=== PATIENT | male | born 1965 | race African-American/Black ===

== ENCOUNTER 2024-05-24 08:35 | Outpatient (REF) | payer MEDICAID, SELFPAY ==
--- NOTE | ~2024-05-24 | XR_ITS ---
EXAMINATION: XR WRIST, LEFT CLINICAL INFORMATION: M25.532 - Pain in left wrist COMPARISON: None available. TECHNIQUE: PA, lateral, and oblique views of the left wrist. FINDINGS: No fracture, dislocation, or suspicious bone lesion. Normal bone mineralization. Carpal bones are intact and normally aligned. Minimal dorsal lunate tilt. Minimal degenerative arthritis at the first CMC joint. Mild blunting of the ulnar styloid, chronic. Normal DRUJ. Normal radiocarpal joint. Soft tissues appear normal. XR/XR wrist LT w scaphoid IMPRESSION: 1. No acute findings left wrist. 2. Mild chronic changes. Electronically signed by: Darin Figueroa MD 05/25/2024 12:01 PM JOSIANE
--- OUTSIDE RECORDS SUMMARY | 2024-05-24 08:59 | XMS_ITS ---
Author Organization [facility] Address [address], [place] [id number] Care Team Providers Care Utility Supervisor [employer] Name Role Phone Minesh Hernandez Primary Care Provider [phone] Results Component Value Reference Range Notes Blood Sugar/finger stick Reviewed date:05/14/2024 12:00:50 PM Interpretation:Normal 128 Performing Lab: Notes/Report: Normal 128 HEMOGLOBIN A1C Reviewed date:05/17/2024 10:33:11 AM Interpretation:6.0 Performing Lab: Notes/Report: Hemoglobin A1C 6.0 <6.5 % Mean Bld Glu Estim. 126 REASON FOR VISIT Office: 6 week f/u, HUDDLE: Flu vax; COVID vax; Shingrix; SDOH; PHQ-9; lab orders; eye care, VISIT:foot exam; DM; knee; weight, Symptom screening by [facility] staff pre entrance to clinic Medications Medication SIG (Take, Route, Frequency, Duration) Notes Start Date End Date Status Trulicity Pen 0.75 mg/0.5 mL as directed subcutaneously once a week for 28 days 03/05/2024 Active naproxen 500 mg 1 tab(s) orally 2 ti mes a day for 21 days Active hydrochlorothiazide-lis inopril 12.5 mg-20 mg 2 tabs orally once a day for 90 days Active MetFORMIN (Eqv-Glucophage XR) 500 mg 2 tab(s) orally with breakfast once a day for 90 days Not-Taking senna 8.6 mg 1 tab(s) orally once a day (at bedtime) for 30 days 05/14/2024 Active phentermine 15 mg 1 cap(s) orally once a day (in the morning) for 30 days PA to be submitted MMonday 08/11/2023 Not-Taking ciclopirox topical 8% 1 joie applied topi lakeisha once a day for 90 days 10/31/2023 Active Lipitor 80 mg 1 tab(s) orally once a day (at bedtime) for 90 days Active Social History Tobacco Use: Social History Observation Description Date Details (start date - stop date) Never Smoker NA - NA Sex Assigned At : Social History Observation Description Sex Assigned At Male Tobacco Use Assessment MU Question Answer Notes What is your current smoking status? nonsmoker Problems Problem Type SNOMED Code ICD Code Onset Dates Problem Status W/U Status Risk Notes Problem Body mass index 30.00 to 34.99 ([id number] ) Body mass index (BMI) 33.0-33.9, adult (Z68.33) Active confirmed Problem Slow transit constipation (90412567) Slow transit constipation (K59.01) Active confirmed Vital Signs Temperature 97.8 degrees Fahrenheit 05/14/19 25 Height 70 in 05/14/2024 Weight 236.0 lbs 05/14/2024 BMI 33.86 kg/m2 05/14/2024 Oximetry 98 05/14/2024 Blood pressure systolic 123 05/14/19 25 Blood pressure diastolic 78 025 Encounters Encounter Location Date Provider Diagnosis [address] [id number] 05/14/2024 Minesh David Type 2 diabetes mellitus without complications E11.9 ; Other obesity due to excess calories E66.09 ; Encounter for screening for COVID-19 Z11.52 ; Essential (primary) hypertension I10 ; Adjustment disorder with depressed mood F43.21 ; Sheltered homelessness Z59.01 ; Osteoarthritis of knee, unspecified M17.9 ; Body mass index (BMI) 33.0-33.9, adult Z68.33 and Slow transit constipation K59.01 Assessments Encounter Date Diagnosis (ICD Code) Assessment Notes Treat ment Notes Treatment Clinical Notes 05/14/2024 Type 2 diabetes mellitus without complications (ICD-10 - E11.9) Contrl historically good. A1c today 05/14/2024 Other obesity due to excess calories (ICD-10 - E66.09) We loked at his weight loss. he feels he is srill losing readily at home and we decided to leave [facility] for Dm and weight as is and folow. uf he stalls we can increas strenthth. geting best diet is tough for him in his living circumstance. Discussed fresh food 05/14/2024 Encounter for screening for COVID-19 (ICD-10 - Z11.52) Covid screening is negative. Discussed in detail with patient how to practice social distancing by avoiding public spaces and crowds now, wearing a mask in public to keep nose and mouth covered, and washing hands frequently especially before eating and after using the bathroom. Return to clinic if you develop any symtpoms of concern to be rescreened or go to the emergency room if you are having concerning symptoms for COVID-19. 05/14/2024 Essential (primary) hypertension (ICD-10 - I10) BP good-no changes 05/14/2024 Adjustment disorder with depressed mood (ICD-10 - F43.21) Mood improved-no change oin support rx 05/14/2024 Sheltered homelessness (ICD-10 - Z59.01) Still woith family and Ok with things 05/14/2024 Osteoarthritis of knee, unspecified (ICD-10 - M17.9) Much improved. Keep walking 05/14/2024 Body mass index (BMI ) 33.0-33.9, adult (ICD-10 - Z68.33) 05/14/2024 Slow transit constipation (ICD-10 - K59.01) He feels need for mopre of stiumulant than a softener. Rx senna and will call and we can add PEG if no good repsons.e OI told him clean out (he is asking for one timer) is not a good solution as he is not obstipateted 05/14/2024 Other I dimitrios try to gt e [facility] records re accidne tbut he is satisfied wih progress and has f/u hortly Plan Of Treatment Medication Medication Name Sig Start Date Stop Date Notes Trulicity Pen 0.75 mg/0.5 mL as directed subcutaneously once a week for 28 days 03/05/2024 senna 8.6 mg 1 tab(s) orally once a day (at bedtime) for 30 days 05/14/2024 Treatment Notes Assessment Notes Type 2 diabetes mellitus wit hout complications Contrl historically good. A1c today Other obesity due to excess calories We loked at his weight loss. he feels he is srill losing readily at home and we decided to leave [facility] for Dm and weight as is and folow. uf he stalls we can increas strenthth. geting best diet is tough for him in his living circumstance. Discussed fresh food Encounter for screening for COVID-19 Cov id screening is negative. Discussed in detail with patient how to practice social distancing by avoiding public spaces and crowds now, wearing a mask in public to keep nose and mouth covered, and washing hands frequently especially before eating and after using the bathroom. Return to clinic if you develop any symtpoms of concern to be rescreened or go to the emergency room if you are having concerning symptoms for COVID-19. Essential (primary) hypertension BP good -no changes Adjustment disorder with depressed mood Mood improved-no change oin support rx Sheltered homelessness Still woith famil y and Ok with things Osteoarthritis of knee, unspecified Much improved. Keep walking Slow transit constipation He feels need for mopre of stiumulant than a softener. Rx senna and will call and we can add PEG if no good repsons.e OI told him clean out (he is asking for one timer) is not a good solution as he is not obstipateted Other I dimitrios try to gte Win g records re accidne tbut he is satisfied wih progress and has f/u hortly Next Appt Details Follow Up: 3 Months, Reason: AB: weight Provider Name:Minesh Hernandez, 08/06/2024 09:00:00 AM, [address] [place] [address], [phone], Provider Name:Sakina noel, 08/10/2024 09:00:00 AM, [address] [place] [address], [phone], Progress Notes * Jason SAMANIEGO LDOB:[birth year] (58 yo M)Acc No.[id number]:05/14/2024 Progress Notes Patient:?Jason SAMANIEGO Provider:?Minesh Hernandez MD :1965???Age:58 Y???Sex:Male Baldo e:05/14/2024 Address:[address] [place] [address] [phone] Subjective: * Chief Complaints: * ???1. Office: 6 week f/u. 2. HUDDLE: Flu vax; COVID vax; Shingrix; SDOH; PHQ-9; lab orders; eye care. 3. VISIT: foot exam; DM; knee; weight. 4. Symptom screening by [facility] staff pre entrance to clinic. * HPI: ???General:? Symptom Screen: - Fever in the last 1 week? Patient denies - New or worsening cough in the last 1 week? Patient denies. - Contact will known COVID exposure in last 5 days? Patient denies -new rash within last 3 weeks? Patient denies - Have you received the COVID-19 vaccine? - Have you received COVID-19 booster? - Have you been tested positive for COVID -19 in the last 7 days? If so where and why? RN/MA: No concerns at [facility]. AB: HUDDLE: Flu vax; COVID vax; Shingrix; SDOH; PHQ-9; lab orders; eye care, ?VISIT: foot exam; DM; knee; weight HIS AGENDA: WEIGHT: Has dropped 10 pounds on trity - takes on .? Some constipation and wants laxative.? had tried teas. Now mag citarte. Constipation: see niko. He cannot tell me marc intevals but he has to sgtrain. Finber intake fair at best. Wants a real clean out ? Not passing blood No POC's at home.? No lows. no high sx. Urinatioin is good ? eye care recently-eye and lasik.Think sir was OK Also fell 03/15 on the ice-hurt left hand - seen at [place] and finally getting better but to [facility] ortho in 10 days. HE continues left wrii splint Knee - doing quite well Going on vacation to [place] [facility] for June. ???Depression Screening:?PHQ-9?Little interest or pleasure in doing things?Not at all ?Feeling down, depressed, or hopeless?Not at all ?Trouble falling or staying asleep, or sleeping too much?Not at all ?Feeling tired or having little energy?Not at all ?Poor appetite or overeating?Not at all ?Feeling bad about yourself-or that you are a failure or have let yourself or your family down?Not at all ?Trouble concentrating on things, such as reading the newspaper or watching television?Not at all ?Moving or speaking so slowly that other people could have noticed. Or the opposite being so fidgety or restless that you have been moving around a lot more than usual?Not at all ?Thoughts that you would be better off , or of hurting yourself in some way?Not at all ?Total Score?0 * ROS:?No acute C/P no acute SOB, No problem with urine, No heartburn or abdominal pain. Endorses being able to climb one fight of stairs without stopping due to SOB, Mood: stable, appetite: good, sleeping well. Denies new skin rashes. * Medical History:? * Social History:?Housing/living arrangements: 05/14/2024 Same02/2024: [address], no changes03/2023 no changes10/19 FO and at friend's houses. ???SDoH Screening?Entered Date?05/14/2024 ?How is this screening being conducted today??By phone ?What is your housing situation today??I do not have housing (staying with others, in a hotel, in a senior care, living outside on the street, on a beach, in a car or in a park) ?Think about the place you live. Do you have problems with any of the following? (Check all that apply)?None of the above ?Within the past 12 months, you worried that your food would run out before you got money to buy more?Never true ?Within the past 12 months, the food you bought just didn't last and you didn't have enough money to get more?Never true ?In the past 12 months, has lack of transportation kept you from medical appointments, meetings, work or from getting things needed for daily living? (Check all that apply)?No ?In the past 12 months has the [employer], gas, oil, or water [employer] threatened to shut off services in your home??I am not sure ?Think about the place you live. Do you have access to internet/wi-fi when you need it??Yes ?Do you want help finding or keeping work or a job??I do not need or want help ???Tobacco Use Assessment MU?Annual Tobacco assessment completed?05/14/2024 Denies ?Tobacco assessment completed?05/14/2024 ?What is your current smoking status??nonsmoker ???Drug use?Date of history:?05/14/2024 Denies ???Opiate Use Hx?Ever taken opiates?No 05/14/2024 ?What did you use first??Opiates prescribed by a doctor ???Alcohol Use: never, 05/14/2024 Opgxcg07/2024: Denies03/2023 Denies04/22 denies. 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 ???Income: 04/22 no income. ???Legal issues/Incarcerations: 04/22 Denies. ???PCP/last visit: 04/22 [facility]. ???Transportation: 04/22 license borrows friend's car. ???Marital Status: Single, 04/22 Single. ???Next of Kin/Emerg. Contact & Community Supports: 04/22 Self. ???Childhood experience?In fostercare/DYS for a portion of childhood?No ?Victim of physical abuse?No ?Victim of sexual abuse?No ?Adults at home using drugs/drinking excessivly?No ?Witness to violence/DV in childhood?No ???Children: none, 04/22 2 sons. ???Islam: none, 04/22 Denies. ???TBI screening/Head injury Hx: Positive, 04/22 Denies. ???Social hx: 04/22 Born in [place] and raised in [place]. Lived with grandparents and then mom. 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 No.? * Medications:?Taking ciclopir ox topical 8% solution 1 joie applied topically once a day , Taking Lipitor 80 mg tablet 1 tab(s) orally once a day (at bedtime) , Taking Trulicity Pen 0.75 mg/0.5 mL solution as directed subcutaneously once a week , Taking naproxen 500 mg tablet 1 tab(s) orally 2 times a day , Taking hydrochlorothiazide-lisinopril 12.5 mg-20 mg tablet 2 tabs orally once a day , Not-Taking/PRN MetFORMIN (Eqv-Glucophage XR) 500 mg tablet, extended release 2 tab(s) orally with breakfast once a day , Not-Taking/PRN phentermine 15 mg capsule 1 cap(s) orally once a day (in the morning) PA to be submitted MMonday, Medication List reviewed and reconciled with the patient Objective: * Vitals:?BP Generic: 123/78, Ht: 70, Wt: 236.0, BMI:33.86, HR: 73, Oxygen sat %: 98, Temp: 97.8. * Physical Examination:?BP and weight noted IN NAd No JVD no thyromegaly chest clear ?no murmur nilat knee creiptius but normal ROM left wrist slint i place-not removed abd soift DM foor exam: Dp pulses 2+ and PT 1+ bilat MF 10/10 bilat nails dry but not deformed skin a bit dry no ulcerastions. Assessment: * Assessment: 1.?Other obesity due to exce ss calories - E66.09 (Primary)???2.?Type 2 diabetes mellitus without complications - E11.9???3.?Encounter for screening for COVID-19 - Z11.52???4.?Essential (primary) hypertension - I10???5. Adjustment disorder with depressed mood - F43.21???6.?Sheltered homelessness - Z59.01???7.?Osteoarthritis of knee, unspecified - M17.9???8.?Body mass index (BMI) 33.0-33.9, adult - Z68.33???9.?Slow transit constipation - K59.01??? Plan: * Treatment: 2.?Type 2 diabetes mellitus without complications? Start senna tablet, 8.6 mg, 1 tab(s), orally, once a day (at bedtime), 30 days, 30 each, Refills 1;?Refill Trulicity Pen solution, 0.75 mg/0.5 mL, as directed, subcutaneously, once a week, 28 days, 4, Refills 2.?LAB: HEMOGLOBIN A1C (Collection Date & Time - 05/14/2024 12:05 PM)?6.0 ? Value Reference Range ?Hemoglobin A1C 6.0 <6.5 - % * ?Mean Bld Glu Estim. 126 - m g/dL ?LAB: Blood Sugar/finger stick (Collection Date & Time - 05/14/2024)?Normal 128 Notes: Contrl historically good. A1c today??3.?Encounter for screening for COVID-19? Notes:Covid screening is negative. Discussed in detail with patient how to practice social distancing by avoiding public spaces and crowds now, wearing a mask in public to keep nose and mouth covered, and washing hands frequently especially before eating and after using the bathroom. Return to clinic if you develop any symtpoms of concern to be rescreened or go to the emergency room if you are having concerning symptoms for COVID-19.??4.?Essential (primary) hypertension? Notes: BP good-no changes??5.?Adjustment disorder with depressed mood? Notes: Mood improved-no change oin support rx??6.?Sheltered homelessness? Notes: Still woith family and Ok with things??7.?Osteoarthritis of knee, unspecified? Notes: Much improved. Keep walking??8.?Slow transit constipation? Notes: He feels need for mopre of stiumulant than a softener. Rx senna and will call and we can addPEG if no good repsons.e OI told him clean out (he is asking for one timer) is not a good solutionas he is not obstipateted??9.?Others? Notes: I dimitrios try to gte [facility] records re accidne tbut he is satisfied wih progress and has f/u hortly?? * Procedure Codes:?06472 BLOOD GLUCOSE/FINGER STICK * Follow Up:?3 Months (Reason: AB: weight) * Images: Billing Information: * Visit Code:? 44168 HPI: 1PF;1ROS;PE: 2-4BA/SYS;MDM:Low; Prescription/OTC;most infections or >50%/15min spent counseling. * Procedure Codes:? 29193 BLOOD GLUCOSE/FINGER STICK. Care Plan Details* * Sign off status: Completed true * Provider:?Minesh Hernandez MD Date:?2024 Generated for Nishant olivier/Aaliyah/eTransmitting on:?2024 08:59 AM EST History and Physical Notes * HPI (History of Present Illness) Category Sub-Category Detail Notes Depression Screening PHQ-9 Little inte rest or pleasure in doing things: Not at all Feeling down, depressed, or hopeless: No t at all Trouble falling or staying asleep, or sl eeping too much: Not at all Feeling tired or having little energy: N ot at all Poor appetite or overeating: Not at all Feeling bad about yourself-o r that you are a failure or have let yourself or your family down: Not at all Trouble concentrating on thi ngs, such as reading the newspaper or watching television: Not at all Moving or speaking so slowly that other people could have noticed. Or the opposite being so fidgety or restless that you have been moving around a lot more than usual: Not at all Thoughts that you would be b maxime off , or of hurting yourself in some way: Not at all Total Score: 0
--- OUTSIDE RECORDS SUMMARY | 2024-05-24 08:59 | XMS_ITS | Clinical Summary ---
Author Organization [address] [facility] Address [address] [place] [address] Phone Care Team Providers Care Spindle Setter Name Role Phone Unavailable Primary Care Provider Unavailabl e Encounters Date Type Department Care Team Description 05/14/2024 Lab Requisition [facility] - Main Lab [address] [place] [address] Mniesh Hernandez MD Type 2 diabetes mellitus without complications (CMS/HCC) from Last 3 Months Social History Tobacco Use Types Packs/Day Years Used Date Smoking Tobacco: Never Assessed Sex and Gender Information Value Date Recorded Sex Assigned at Not on file Legal Sex Male 7:34 PM EST Gender Identity Not on file Sexual Orientation Not on file Plan of Treatment Health Maintenance Due Date Last Done Comments Diabetes: Annual Foot Exam 1973 Diabetes: Annual Retina Eye Exam 1973 DTaP,Tdap,and Td Vaccines (1 - Tdap) 1982 Pneumococcal Vaccine: 50+ Ye ars (1 of 2 - PCV) 1982 Pneumococcal Vaccine: Pediat rics (0 to 5 Years) and At-Risk Patients (6 to 64 Years) (1 of 2 - PCV) 1982 Zoster Vaccines (1 of 2) 2013 COVID-19 Vaccine (2023-2 5 season) 2023 Influenza Vaccine (#1) 2023 Cholesterol Screening (Lipid Panel) 05/15/2024 Colorectal Cancer Screening: Colonoscopy 05/15/2024 Depression Screening 05/15/2024 Diabetes: Annual Urine Albumin-Creatinine Ratio (uACR) 05/15/2024 HIV Screening 05/15/2024 Hepatitis C Screening 05/15/2024 Social Influencers of Health Screening 05/15/2024 Diabetes: Blood Sugar Contro l Test (HGBA1C) 11/11/2024 05/14/2024 Diabetes: Annual GFR (Glomer ular Filtration Rate) 05/14/2025 05/14/2024 RSV Immunization Patients 60 + Years Old (1 - 1-dose 75+ series) 2038 HIB Vaccines Aged Out No longer eligi ble based on patient's age to complete this topic HPV Vaccines Aged Out No longer eligi ble based on patient's age to complete this topic Hepatitis A Vaccines Aged Out No long er eligible based on patient's age to complete this topic Hepatitis B Vaccines Aged Out No long er eligible based on patient's age to complete this topic IPV Vaccines Aged Out No longer eligi ble based on patient's age to complete this topic MMR Vaccines Aged Out No longer eligi ble based on patient's age to complete this topic Meningococcal ACWY Vaccine Aged Out N o longer eligible based on patient's age to complete this topic Meningococcal B Vacine Aged Out No lo nger eligible based on patient's age to complete this topic RSV Immunization Patients Un josé 20 months Aged Out No longer eligible b ased on patient's age to complete this topic Varicella Vaccines Aged Out No longer eligible based on patient's age to complete this topic Procedures Procedure Name Priority Date/Time Associated Diagnosis Comments HEMOGLOBIN A1C Routine 05/14/2024 12:05 PM EST Type 2 diabetes mellitus without complications (CMS/HCC) COMPREHENSIVE METABOLIC PANEL Routine 05/14/2024 12:05 PM EST Type 2 diabetes mellitus without complications (CMS/HCC) from Last 3 Months Results * Hemoglobin A1c (05/14/2024 12:05 PM EST) Hemoglobin A1C 6.0 <6.5 % LAB CHEMISTRY METHOD 05/14/2024 8:44 PM EST [facility] Mean Bld Glu Estim. 126 mg/dL LAB CHEMISTRY METHOD 05/14/2024 8:44 PM EST [facility] Blood Venous blood specimen / Unknown 05/14/2024 12:05 PM EST 05/14/2024 4:28 PM EST us Minesh Hernandez MD LAB BLOOD ORDERABLES Final Re sult [facility] [address] [place] [address], * (ABNORMAL) Comprehensive metabolic panel (05/14/2024 12:05 PM EST) Sodium 140 133 - 145 mmol/L LAB CHEMISTRY METHOD 05/14/2024 5:08 PM [facility] Potassium 3.5 3.5 - 5.5 mmol/L LAB CHEMISTRY METHOD 05/14/2024 5:08 PM [facility] Chloride 107 96 - 110 mmol/L LAB CHEMISTRY METHOD 05/14/2024 5:08 PM [facility] CO2 27 21 - 32 mmol/L LAB CHEMISTRY METHOD 05/14/2024 5:08 PM [facility] Anion Gap 6 3 - 11 LAB CHEMISTRY METHOD 05/14/2024 5:08 PM [facility] Glucose 116(H) 70 - 100 mg/dL LAB CHEMISTRY METHOD 05/14/2024 5:08 PM [facility] BUN 14 5 - 25 mg/dL LAB CHEMISTRY METHOD 05/14/2024 5:08 PM [facility] Creatinine 1.02 0.70 - 1.30 mg/dL LAB CHEMISTRY METHOD 05/14/2024 5:08 PM [facility] eGFR 84 >=60 mL/min/1. 73m2 LAB CHEMISTRY METHOD 05/14/2024 5:08 PM [facility] Comment:Calculation based on the??Chronic Kidney Disease Epidemiology Collaboration (CKD-EPI) equation refit??without adjustment for race. BUN/Creatinine Ratio 13.7 LAB CHEMISTRY METHOD 05/14/2024 5:08 PM [facility] Calcium 8.9 8.5 - 10.5 mg/dL LAB CHEMISTRY METHOD 05/14/2024 5:08 PM [facility] AST (SGOT) 41 10 - 42 unit/L LAB CHEMISTRY METHOD 05/14/2024 5:08 PM [facility] ALT (SGPT) 52 10 - 60 unit/L LAB CHEMISTRY METHOD 05/14/2024 5:08 PM [facility] Alkaline Phosphatase 95 42 - 121 unit/L LAB CHEMISTRY METHOD 05/14/2024 5:08 PM [facility] Total Protein 7.1 6.0 - 8.0 g/dL LAB CHEMISTRY METHOD 05/14/2024 5:08 PM [facility] Albumin 3.7 3.2 - 5.0 g/dL LAB CHEMISTRY METHOD 05/14/2024 5:08 PM [facility] Total Bilirubin 0.7 0.0 - 1.4 mg/dL LAB CHEMISTRY METHOD 05/14/2024 5:08 PM [facility] Blood Venous blood specimen / Unknown 05/14/2024 12:05 PM EST 05/14/2024 4:28 PM EST us Minesh Hernandez MD LAB BLOOD ORDERABLES Final Re sult [facility] Organization Address City/State/ZIP Co de Phone Number [facility] [address] [place] [address], from Last 3 Months Insurance MEDICA[place] - [place]
--- OUTSIDE RECORDS SUMMARY | 2024-05-24 08:59 | XMS_ITS | Encounter Summary ---
Author Organization [facility] Address [address] [place] [address] Care Team Providers Care Marketing Director Name Role Phone Unavailable Primary Care Provider Unavailabl e Encounter Details Date Type Department Care Team (Late st Contact Info) Description 05/14/2024 Lab Requisition [facility] - Main Lab [address] [place] [address] Minesh Hernandez MD [address] [place], [place] Type 2 diabetes mellitus without complications (CMS/HCC) Social History Tobacco Use Types Packs/Day Years Used Date Smoking Tobacco: Never Assessed Sex and Gender Information Value Date Recorded Sex Assigned at Not on file Legal Sex Male 7:34 PM EST Gender Identity Not on file Sexual Orientation Not on file documented as of this encounter Plan of Treatment Not on file documented as of this encounter Procedures Procedure Name Priority Date/Time Associated Diagnosis Comments HEMOGLOBIN A1C Routine 05/14/2024 12:05 PM EST Type 2 diabetes mellitus without complications (CMS/HCC) COMPREHENSIVE METABOLIC PANEL Routine 05/14/2024 12:05 PM EST Type 2 diabetes mellitus without complications (CMS/HCC) documented in this encounter Results * Hemoglobin A1c (05/14/2024 12:05 PM EST) Hemoglobin A1C 6.0 <6.5 % LAB CHEMISTRY METHOD 05/14/2024 8:44 PM EST [facility] Mean Bld Glu Estim. 126 mg/dL LAB CHEMISTRY METHOD 05/14/2024 8:44 PM [facility] Blood Venous blood specimen / Unknown 05/14/2024 12:05 PM EST 05/14/2024 4:28 PM EST us Minesh Hernandez MD LAB BLOOD ORDERABLES Final Re sult [facility] [address] [place] [address], [place] [phone] * (ABNORMAL) Comprehensive metabolic panel (05/14/2024 12:05 PM EST) Sodium 140 133 - 145 mmol/L LAB CHEMISTRY METHOD 05/14/2024 5:08 PM [facility] Potassium 3.5 3.5 - 5.5 mmol/L LAB CHEMISTRY METHOD 05/14/2024 5:08 PM [facility] Chloride 107 96 - 110 mmol/L LAB CHEMISTRY METHOD 05/14/2024 5:08 PM [facility] CO2 27 21 - 32 mmol/L LAB CHEMISTRY METHOD 05/14/2024 5:08 PM [facility] Anion Gap 6 3 - 11 LAB CHEMISTRY METHOD 05/14/2024 5:08 PM [facility] Glucose 116(H) 70 - 100 mg/dL LAB CHEMISTRY METHOD 05/14/2024 5:08 PM [facility] BUN 14 5 - 25 mg/dL LAB CHEMISTRY METHOD 05/14/2024 5:08 PM [facility] Creatinine 1.02 0.70 - 1.30 mg/dL LAB CHEMISTRY METHOD 05/14/2024 5:08 PM [facility] eGFR 84 >=60 mL/min/1. 73m2 LAB CHEMISTRY METHOD 05/14/2024 5:08 PM [facility] Comment:Calculation based on the??Chronic Kidney Disease Epidemiology Collaboration (CKD-EPI) equation refit??without adjustment for race. BUN/Creatinine Ratio 13.7 LAB CHEMISTRY METHOD 05/14/2024 5:08 PM [facility] Calcium 8.9 8.5 - 10.5 mg/dL LAB CHEMISTRY METHOD 05/14/2024 5:08 PM [facility] AST (SGOT) 41 10 - 42 unit/L LAB CHEMISTRY METHOD 05/14/2024 5:08 PM [facility] ALT (SGPT) 52 10 - 60 unit/L LAB CHEMISTRY METHOD 05/14/2024 5:08 PM [facility] Alkaline Phosphatase 95 42 - 121 unit/L LAB CHEMISTRY METHOD 05/14/2024 5:08 PM [facility] Total Protein 7.1 6.0 - 8.0 g/dL LAB CHEMISTRY METHOD 05/14/2024 5:08 PM [facility] Albumin 3.7 3.2 - 5.0 g/dL LAB CHEMISTRY METHOD 05/14/2024 5:08 PM [facility] Total Bilirubin 0.7 0.0 - 1.4 mg/dL LAB CHEMISTRY METHOD 05/14/2024 5:08 PM [facility] Blood Venous blood specimen / Unknown 05/14/2024 12:05 PM EST 05/14/2024 4:28 PM EST us Minesh Hernandez MD LAB BLOOD ORDERABLES Final Re sult [facility] [address] [place] [address], documented in this encounter Visit Diagnoses Diagnosis Type 2 diabetes mellitus without complications (CMS/HCC) documented in this encounter
--- OUTSIDE RECORDS SUMMARY | 2024-05-24 09:00 | XMS_ITS ---
Author Organization [facility] Address [address] [place] [id number] Care Team Providers Care Metal Roofing Mechanic Name Role Phone TimothyMinesh kumar Primary Care Provider [phone] REASON FOR VISIT NS/rebook note Social History Sex Assigned At : Social History Observation Description Sex Assigned At Male Encounters Encounter Location Date Provider Diagnosis [address] [phone] 04/16/2024 Minesh Hernandez Plan Of Treatment Next Appt Details Provider Name:Minesh Hernandez, 08/06/2024 09:00:00 AM, [address] [place] [address], [phone], Provider Name:Sakina noel, 08/10/2024 09:00:00 AM, [address] [place] [address], [phone], Progress Notes * Jason SAMANIEGO LDOB:[birth year] (58 yo M)Acc No.[id number]:04/16/2024 Patient:?Jason SAMANIEGO :1965???Age:58 Y???Sex:Male Address:[address] [place] [address], [address] * true * Date:? Generated for Nishant olivier/Aaliyah/eTransmitting on:?2024 08:59 AM EST
--- OUTSIDE RECORDS SUMMARY | 2024-05-24 09:00 | XMS_ITS | Clinical Summary ---
Author Organization [facility] Address [address] [place] [address] Care Team Providers Care Clinical Research Physician Name Role Phone Unavailable Primary Care Provider Unavailabl e Social History Tobacco Use Types Packs/Day Years Used Date Smoking Tobacco: Never Assessed Sex and Gender Information Value Date Recorded Sex Assigned at Not on file Gender Identity Not on file Sexual Orientation Not on file Plan of Treatment Not on file
== END 2024-05-24 08:36 | disposition home or self-care (01) ==
LOC: HO.HOSX 08:35
DX: M25.532 Pain in left wrist (principal)
CPT/HCPCS: 73110; 99212

== ENCOUNTER 2024-05-24 09:51 | Outpatient (AMB) | payer MEDICAID, SELFPAY ==
--- NOTE | 2024-05-24 09:57 | MHC.OFFVIS ---
Vital Signs 05/24/24 10:02 Height 5 ft 11 in Weight 231 lb BMI 32.2 Intake Visit Reasons: [employer]-Left wrist pain s/p fall 03/15/24 Intake Note: Jason is a 58 year old right hand dominant male who presents today as a new patient with complaints for left wrist pain. On 03/15/2024 patient had a slip and fall on his drive way landing on the left side of his body. He has been seen at [facility] and treated with [facility], and was also seen with [facility] who provided him with a velcro wrist brace. They expressed concerns for DeQuervains vs Scaphoid Fracture. Currently states he has mild pain and increases with certain movements like twisting and lifting. He has swelling if he over uses his hand. States his pain has improved since date. Denies numbness, tingling or locking of any finger. Allergies No Known Allergies Allergy (Verified 05/24/24 10:06) HPI HPI [employer]-Left wrist pain s/p fall 03/15/24: Details: Patient is a 59 who presents for evaluation of left wrist pain after a fall, date of injury 03/15/2024. Patient reports he was previously evaluated and [facility], in the were concern for a potential fracture that was not seen on initial x-rays. Today, the patient reports that his wrist is nontender to palpation, but does cause him some discomfort with attempted range of motion of both of the left hand and wrist. Denies any numbness or tingling in the left upper extremity. No other acute complaints or concerns at this time. 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 Neuro: Normal sensation of the tips of all digits of the left hand at this time Vascular: Cap refill brisk Pain: Patient reports pain in the 4th and 5th MCP joints of the left hand when attempting to make a closed fist No tenderness to palpation anywhere in the left hand or wrist No anatomical snuffbox or scaphoid tubercle tenderness ROM: With encouragement, patient was able to make a closed fist and extend all digits of the left hand fully Skin: No lacerations or abrasions. General: No ecchymosis, erythema, or evidence of infection. Psych: Appears grossly normal Affect normal Attitude cooperative Results Reviewed Results Reviewed: X-rays obtained in the office today and independently reviewed by me, Minesh Wall PA-C, demonstrate no fracture or acute bony abnormality of the left hand or wrist. Assessment & Plan Assessment & Plan (1) Stiffness of left hand joint: Code(s): M25.642 - Stiffness of left hand, not elsewhere classified Category: Medical (2) FCR (flexor carpi radialis) tenosynovitis: Code(s): M65.939 - Unspecified synovitis and tenosynovitis, unspecified forearm Category: Medical Plan 1. FCR tendinitis of the left wrist 2. Stiffness of the left hand Patient was educated about these conditions Patient is educated about the typical treatment course At this time, patient was referred to occupational therapy for range of motion and strengthening of the left hand and wrist in the setting of stiffness and FCR tendinitis Patient was also advised that he can continue to wear the Velcro wrist splint he has been provided previously when his wrist is really bothering him, but otherwise should not be wearing it Patient was amenable to this plan Patient will follow-up as needed with any acute concerns Orders: Orders XR wrist LT w scaphoid Today M25.532 - Pain in left wrist OT Evaluation and Treatment Today M25.642 - Stiffness of left hand, not elsewhere classified, M65.939 - Unspecified synovitis and tenosynovitis, unspecified forearm Coding Level of Care Code New Pt Level 3 (41373) Diagnoses Stiffness of left hand joint M25.642 FCR (flexor carpi radialis) tenosynovitis M65.939
[2024-05-24 10:02] VITALS: BMI 32.2
--- OUTSIDE RECORDS SUMMARY | 2024-05-24 10:52 | XMS_ITS | Encounter Summary ---
Author Organization [facility] Address [address] [place] [address] Care Team Providers Care Water Resource Engineering Specialist Name Role Phone Unavailable Primary Care Provider Unavailabl e Encounter Details Date Type Department Care Team (Late st Contact Info) Description 05/14/2024 Lab Requisition [facility] - Main Lab [address] [place] [address] Minesh Hernandez MD [address] [place], [place] Type 2 diabetes mellitus without complications [...] LAB CHEMISTRY METHOD 05/14/2024 8:44 PM EST [facility] Mean Bld Glu Estim. 126 mg/dL LAB CHEMISTRY METHOD 05/14/2024 8:44 PM [facility] Blood Venous blood specimen / Unknown 05/14/2024 12:05 PM EST 05/14/2024 4:28 PM EST us Minesh Hernandez MD LAB BLOOD ORDERABLES Final Re sult [facility] [address] [place] [address], [place] [phone] * (ABNORMAL) Comprehensive metabolic panel (05/14/2024 12:05 PM EST) Sodium 140 133 - 145 mmol/L LAB CHEMISTRY METHOD 05/14/2024 5:08 PM [facility] Potassium 3.5 3.5 - 5.5 mmol/L LAB CHEMISTRY METHOD 05/14/2024 5:08 PM [facility] Chloride 107 96 - 110 mmol/L LAB CHEMISTRY METHOD 05/14/2024 5:08 PM [facility] CO2 27 21 - 32 mmol/L LAB CHEMISTRY METHOD 05/14/2024 5:08 PM [facility] Anion Gap 6 3 - 11 LAB CHEMISTRY METHOD 05/14/2024 5:08 PM [facility] Glucose 116(H) 70 - 100 mg/dL LAB CHEMISTRY METHOD 05/14/2024 5:08 PM [facility] BUN 14 5 - 25 mg/dL LAB CHEMISTRY METHOD 05/14/2024 5:08 PM [facility] Creatinine 1.02 0.70 - 1.30 mg/dL LAB CHEMISTRY METHOD 05/14/2024 5:08 PM [facility] eGFR 84 >=60 mL/min/1. 73m2 LAB CHEMISTRY METHOD 05/14/2024 5:08 PM [facility] Comment:Calculation based on the??Chronic Kidney Disease Epidemiology Collaboration (CKD-EPI) equation refit??without adjustment for race. BUN/Creatinine Ratio 13.7 LAB CHEMISTRY METHOD 05/14/2024 5:08 PM [facility] Calcium 8.9 8.5 - 10.5 mg/dL LAB CHEMISTRY METHOD 05/14/2024 5:08 PM [facility] AST (SGOT) 41 10 - 42 unit/L LAB CHEMISTRY METHOD 05/14/2024 5:08 PM [facility] ALT (SGPT) 52 10 - 60 unit/L LAB CHEMISTRY METHOD 05/14/2024 5:08 PM [facility] Alkaline Phosphatase 95 42 - 121 unit/L LAB CHEMISTRY METHOD 05/14/2024 5:08 PM [facility] Total Protein 7.1 6.0 - 8.0 g/dL LAB CHEMISTRY METHOD 05/14/2024 5:08 PM [facility] Albumin 3.7 3.2 - 5.0 g/dL LAB CHEMISTRY METHOD 05/14/2024 5:08 PM [facility] Total Bilirubin 0.7 0.0 - 1.4 mg/dL LAB CHEMISTRY METHOD 05/14/2024 5:08 PM [facility] Blood Venous blood specimen / Unknown 05/14/2024 12:05 PM EST 05/14/2024 4:28 PM EST us Minesh Hernandez MD LAB BLOOD ORDERABLES Final Re sult [facility] [address] [place] [address], documented in this encounter Visit Diagnoses Diagnosis Type 2 diabetes mellitus without complications (CMS/HCC) documented in this encounter
--- OUTSIDE RECORDS SUMMARY | 2024-05-24 10:52 | XMS_ITS | Clinical Summary ---
Author Organization [address] [facility] Address [address] [place] [address] Phone Care Team Providers Care Body Care Manager Name Role Phone Unavailable Primary Care Provider Unavailabl e Encounters Date Type Department Care Team Description 05/14/2024 Lab Requisition [facility] - Main Lab [address] [place] [address] Minesh Hernandez MD Type 2 diabetes mellitus without [...] PM EST [facility] Blood Venous blood specimen / Unknown 05/14/2024 12:05 PM EST 05/14/2024 4:28 PM EST us Minesh Hernandez MD LAB BLOOD ORDERABLES Final Re sult [facility] [address] [place] [address], * (ABNORMAL) Comprehensive metabolic panel (05/14/2024 12:05 PM EST) Sodium 140 133 - 145 mmol/L LAB CHEMISTRY METHOD 05/14/2024 5:08 PM [facility] Potassium 3.5 3.5 - 5.5 mmol/L LAB CHEMISTRY METHOD 05/14/2024 5:08 PM [facility] Chloride 107 96 - 110 mmol/L LAB CHEMISTRY METHOD 05/14/2024 5:08 PM [facility] CO2 27 21 - 32 mmol/L LAB CHEMISTRY METHOD 05/14/2024 5:08 PM [facility] Anion Gap 6 3 - 11 LAB CHEMISTRY METHOD 05/14/2024 5:08 PM [facility] Glucose 116(H) 70 - 100 mg/dL LAB CHEMISTRY METHOD 05/14/2024 5:08 PM [facility] BUN 14 5 - 25 mg/dL LAB CHEMISTRY METHOD 05/14/2024 5:08 PM [facility] Creatinine 1.02 0.70 - 1.30 mg/dL LAB CHEMISTRY METHOD 05/14/2024 5:08 PM [facility] eGFR 84 >=60 mL/min/1. 73m2 LAB CHEMISTRY METHOD 05/14/2024 5:08 PM [facility] Comment:Calculation based on the??Chronic Kidney Disease Epidemiology Collaboration (CKD-EPI) equation refit??without adjustment for race. BUN/Creatinine Ratio 13.7 LAB CHEMISTRY METHOD 05/14/2024 5:08 PM [facility] Calcium 8.9 8.5 - 10.5 mg/dL LAB CHEMISTRY METHOD 05/14/2024 5:08 PM [facility] AST (SGOT) 41 10 - 42 unit/L LAB CHEMISTRY METHOD 05/14/2024 5:08 PM [facility] ALT (SGPT) 52 10 - 60 unit/L LAB CHEMISTRY METHOD 05/14/2024 5:08 PM [facility] Alkaline Phosphatase 95 42 - 121 unit/L LAB CHEMISTRY METHOD 05/14/2024 5:08 PM [facility] Total Protein 7.1 6.0 - 8.0 g/dL LAB CHEMISTRY METHOD 05/14/2024 5:08 PM [facility] Albumin 3.7 3.2 - 5.0 g/dL LAB CHEMISTRY METHOD 05/14/2024 5:08 PM [facility] Total Bilirubin 0.7 0.0 - 1.4 mg/dL LAB CHEMISTRY METHOD 05/14/2024 5:08 PM [facility] Blood Venous blood specimen / Unknown 05/14/2024 12:05 PM EST 05/14/2024 4:28 PM EST us Minesh Hernandez MD LAB BLOOD ORDERABLES Final Re sult [facility] Organization Address City/State/ZIP Co de Phone Number [facility] [address] [place] [address], from Last 3 Months Insurance [id number]
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
--- OUTSIDE RECORDS SUMMARY | 2024-05-24 10:53 | XMS_ITS | Clinical Summary ---
Author Organization [facility] Address [address] [place] [address] Care Team Providers Care Test Engineering Intern Name Role Phone Unavailable Primary Care Provider Unavailabl e Social History Tobacco Use Types Packs/Day Years Used Date Smoking Tobacco: Never Assessed Sex and Gender Information Value Date Recorded Sex Assigned at Not on file Gender Identity Not on file Sexual Orientation Not on file Plan of Treatment Not on file
== END 2024-05-24 10:27 | disposition home or self-care (01) ==
DX: M25.642 Stiffness of left hand, not elsewhere classified (principal); M65.932 Unspecified synovitis and tenosynovitis, left forearm; M25.532 Pain in left wrist
CPT/HCPCS: 99203

== ENCOUNTER → 2024-05-24 09:55 | Outpatient (BNV) | payer MEDICAID, SELFPAY | PROVIDERS: Visit Provider Radiology Diagnostic Radiology | DX: M25.532 Pain in left wrist (principal) | CPT/HCPCS: 73110 ==

== ENCOUNTER 2024-09-02 09:04 | Outpatient (RCR) | payer MEDICAID, SELFPAY ==
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
== END 2024-09-02 12:31 | disposition home or self-care (01) ==
LOC: HO.OTS 09:04
DX: M25.642 Stiffness of left hand, not elsewhere classified (principal); M65.932 Unspecified synovitis and tenosynovitis, left forearm
CPT/HCPCS: 97035; 97110; 97165